=== PATIENT | female | born 1955 | race Caucasian/White ===

== ENCOUNTER → 2021-05-18 10:10 | Outpatient (BNVA) | payer MEDICARE, BC, SELFPAY | PROVIDERS: PCP Family Medicine; Visit Provider Nurse Practitioner | DX: G31.84 Mild cognitive impairment of uncertain or unknown etiology (principal); M54.10 Radiculopathy, site unspecified; B94.8 Sequelae of other specified infectious and parasitic diseases | CPT/HCPCS: 99204 ==

== ENCOUNTER → 2022-05-26 15:07 | Outpatient (BNVA) | payer MEDICARE, BC, SELFPAY | PROVIDERS: PCP Nurse Practitioner Family; Visit Provider Specialist | DX: A69.22 Other neurologic disorders in Lyme disease (principal); B94.9 Sequelae of unspecified infectious and parasitic disease | CPT/HCPCS: 99214 ==

== ENCOUNTER → 2022-07-19 15:16 | Outpatient (BNVA) | payer MEDICARE, BC, SELFPAY | PROVIDERS: PCP Nurse Practitioner Family; Visit Provider Specialist | DX: B94.9 Sequelae of unspecified infectious and parasitic disease (principal); A69.22 Other neurologic disorders in Lyme disease; M62.838 Other muscle spasm | CPT/HCPCS: 99213 ==

== ENCOUNTER → 2022-12-30 12:12 | Outpatient (BNVA) | payer MEDICARE, BC, SELFPAY | PROVIDERS: PCP Nurse Practitioner Family; Visit Provider Specialist | DX: B94.9 Sequelae of unspecified infectious and parasitic disease (principal); A69.22 Other neurologic disorders in Lyme disease | CPT/HCPCS: 99213 ==

== ENCOUNTER → 2023-12-27 12:45 | Outpatient (BNVA) | payer MEDICARE, BC, SELFPAY | PROVIDERS: PCP Nurse Practitioner Family; Visit Provider Specialist | DX: R68.89 Other general symptoms and signs (principal); B94.9 Sequelae of unspecified infectious and parasitic disease; A69.22 Other neurologic disorders in Lyme disease; R29.90 Unspecified symptoms and signs involving the nervous system; E11.9 Type 2 diabetes mellitus without complications | CPT/HCPCS: 99213 ==